=== PATIENT | male | born 1995 | race Caucasian/White ===

== ENCOUNTER 2017-06-16 10:23 | Emergency (ER) | payer SELFPAY ==
[~2017-06-16] VITALS: Ht 182.9 cm; Wt 70.0 kg
[2017-06-16 10:28] VITALS: BP 116/79; PULSE 65; RESP 16; TEMP 98.7; O2SAT 99
--- NOTE | 2017-06-16 10:44 | PD ---
HPI Chief Complaint: Chest Pain Time Seen by Provider: 10:44 Travel History International Travel<30 days: No Contact w/Intl Traveler<30days: No Traveled to known affect area: No History of Present Illness HPI 21-year-old male came to the emergency room with his with history of chest pain, bilateral arm and hands tingling and feet tingling that started this morning after he woke up. Patient says that generally he doesn't have any of these symptoms. No history of neck or back pain. Patient is not on any medications on a regular basis. He is otherwise a relatively healthy person. He does have family history of heart disease. His grandfather in his 30s from a massive heart attack. Patient was really concerned from heart standpoint and came to the emergency room. Currently he says his pain is not there. It comes and goes and when it comes it's usually a sharp pain in both his armpits. He seems anxious. Vital signs were stable. [facility] Past Medical History Narrative Medical List of his past medical, surgical, social and family history is reviewed from the nursing note. Social History Alcohol Use: Yes (Frequently) Tobacco Use: No Substance Use: No Allergies-Medications (Allergen,Severity, Reaction): Coded Allergies: No Known Allergies (Unverified , 06/16/17) Comments No known drug allergies. Narrative Medication Awaiting for the nurse to do the medical reconciliation. Patient told me he is not on any medications. Review of Systems Except as stated in HPI: all other systems reviewed are Neg Neurologic: Positive: Paresthesia Physical Exam Narrative GENERAL: Awake, alert, anxious, mild distress SKIN: Focused skin assessment warm/dry. HEAD: Atraumatic. Normocephalic. EYES: Pupils equal and round. No scleral icterus. No injection or drainage. ENT: No nasal bleeding or discharge. Mucous membranes pink and moist. NECK: Trachea midline. No JVD. CARDIOVASCULAR: Regular rate and rhythm. No murmur appreciated. RESPIRATORY: No accessory muscle use. Clear to auscultation. Breath sounds equal bilaterally. GASTROINTESTINAL: Abdomen soft, non-tender, nondistended. Hepatic and splenic margins not palpable. MUSCULOSKELETAL: No obvious deformities. No clubbing. No cyanosis. No edema. NEUROLOGICAL: Awake and alert. No obvious cranial nerve deficits. Motor grossly within normal limits. Normal speech. PSYCHIATRIC: Appropriate mood and affect; insight and judgment normal. Data Data Last Documented VS Vital Signs Date Time Temp Pulse Resp B/P (MAP) Pulse Ox O2 Delivery O2 Flow Rate FiO2 06/16/17 15:45 06/16/17 14:17 84 18 98 Room Air 06/16/17 11:13 2.00 06/16/17 10:28 98.7 Orders Orders Electrocardiogram (06/16/17 10:49) Basic Metabolic Panel (Bmp) (06/16/17 10:49) Complete Blood Count With Diff (06/16/17 10:49) Magnesium (Mg) (06/16/17 10:49) Prothrombin Time / Inr (Pt) (06/16/17 10:49) Troponin I (06/16/17 10:49) Chest, Single Ap (06/16/17 10:49) Ecg Monitoring (06/16/17 10:49) Bilateral Bp Monitoring (06/16/17 10:49) Iv Access Insert/Monitor (06/16/17 10:49) Oximetry (06/16/17 10:49) Oxygen Administration (06/16/17 10:49) Aspirin Chew (Aspirin Chew) (06/16/17 11:00) Sodium Chloride 0.9% Flush (Ns Flush) (06/16/17 11:00) Sodium Chlorid 0.9% 500 Ml Inj (Ns 500 M (06/16/17 11:00) Alprazolam (Xanax) (06/16/17 11:15) Ct Brain W/O Iv Contrast(Rout) (06/16/17 ) Ct Cerv Spine W/O Contrast (06/16/17 ) Troponin I (06/16/17 14:00) Ed Discharge Order (06/16/17 15:19) Labs Laboratory Tests Test 06/16/17 11:00 06/16/17 14:17 White Blood Count 9.4 TH/MM3 Red Blood Count 5.25 MIL/MM3 Hemoglobin 15.6 GM/DL Hematocrit 45.1 % Mean Corpuscular Volume 86.0 FL Mean Corpuscular Hemoglobin 29.8 PG Mean Corpuscular Hemoglobin Concent 34.6 % Red Cell Distribution Width 13.1 % Platelet Count 241 TH/MM3 Mean Platelet Volume 7.8 FL Neutrophils (%) (Auto) 72.5 % Lymphocytes (%) (Auto) 17.2 % Monocytes (%) (Auto) 7.5 % Eosinophils (%) (Auto) 1.6 % Basophils (%) (Auto) 1.2 % Neutrophils # (Auto) 6.8 TH/MM3 Lymphocytes # (Auto) 1.6 TH/MM3 Monocytes # (Auto) 0.7 TH/MM3 Eosinophils # (Auto) 0.1 TH/MM3 Basophils # (Auto) 0.1 TH/MM3 CBC Comment DIFF FINAL Differential Comment Prothrombin Time 11.1 SEC Prothromb Time International Ratio 1.0 RATIO Blood Urea Nitrogen 13 MG/DL Creatinine 0.89 MG/DL Random Glucose 107 MG/DL Calcium Level 9.2 MG/DL Magnesium Level 1.9 MG/DL Sodium Level 139 MEQ/L Potassium Level 3.7 MEQ/L Chloride Level 106 MEQ/L Carbon Dioxide Level 23.0 MEQ/L Anion Gap 10 MEQ/L Estimat Glomerular Filtration Rate 107 ML/MIN Troponin I LESS THAN 0.02 NG/ML LESS THAN 0.02 NG/ML MDM Medical Decision Making Medical Screen Exam Complete: Yes Emergency Medical Condition: Yes Medical Record Reviewed: Yes Interpretation(s) Twelve-lead EKG was reviewed by me. Normal sinus rhythm, normal axis, septal T- wave inversions. Heart rate of 71 bpm. Differential Diagnosis Cervical radiculopathy, ACS, non-STEMI, PE, anxiety Narrative Course 11:12 AM awaiting for the blood test results. I will order a CT scan of his head and C-spine. Patient will be given some Xanax since he visibly appears to be very anxious. 3:27 PM the initial set of cardiac enzyme was negative. At ordered a CT C- spine and head which were read to be essentially negative. I ordered a second troponin which is negative as well that was 3 hours apart. I went and spoke with the patient he was asleep. He woke up and said he feels better. I am comfortable discharging him home. I do not have an next pronation of his paresthesia at this point. But given 2 sets of negative troponin the chest pain definitely does not sound cardiac. Procedures EKG Prior to Arrival: No Diagnosis Primary Impression: Paresthesia Additional Impression: Atypical chest pain Referrals: Primary Care Physician Additional Instructions: Please return to the ER if the condition worsens or any other new concerns. Otherwise follow-up with your primary care. Drink alcohol in moderation. Med/Other Pt SpecificInfo: No Meds Exist/No RX given Disposition: 01 DISCHARGE HOME Condition: Pancho Hawthorne MD Jun 16, 2017 10:44
[2017-06-16] MEDS ORDERED: SODIUM CHLORID 0.9% 500 ML INJ 500 ML IV ONE (11:00)
[2017-06-16] MEDS ORDERED: SODIUM CHLORIDE 0.9% FLUSH 10 ML FLUSH IVF PRN (11:00)
[2017-06-16] MEDS ORDERED: ASPIRIN 81 MG CHEW TAB PO ONE (11:00)
[2017-06-16 11:10] VITALS: BP 133/80; PULSE 70; RESP 20; O2SAT 100
[2017-06-16] MEDS ORDERED: ALPRAZolam 0.5 MG TAB PO ONE (11:15)
[2017-06-16 11:22] LABS: AUTOMATED NEUTROPHIL # 6.8 TH/MM3 (1.8-7.7); BASOPHIL # 0.1 TH/MM3 (0-0.2); BASOPHIL % 1.2 % (0.0-2.0); EOSINOPHIL # 0.1 TH/MM3 (0-0.4); EOSINOPHIL % 1.6 % (0.0-4.0); HEMATOCRIT 45.1 % (39.0-51.0); HEMO FLAGS DIFF FINAL; LYMPH % 17.2 % (9.0-44.0); LYMPHOCYTE # 1.6 TH/MM3 (1.0-4.8); MEAN CORPUSCULAR HEMOGLOBIN 29.8 PG (27.0-34.0); MEAN CORPUSCULAR HGB CONC 34.6 % (32.0-36.0); MONO % 7.5 % (0.0-8.0); NEUT % 72.5 % (16.0-70.0); PLATELET COUNT 241 TH/MM3 (150-450); RED BLOOD COUNT 5.25 MIL/MM3 (4.50-5.90); RED CELL DISTRIBUTION WIDTH 13.1 % (11.6-17.2); WHITE BLOOD COUNT 9.4 TH/MM3 (4.0-11.0)
[2017-06-16 11:25] LABS: PROTHROMBIN TIME - PATIENT 11.1 SEC (9.8-11.6)
--- NOTE | 2017-06-16 11:31 | RADRPT ---
EXAM DATE/TIME: 06/16/2017 11:04 [facility] COMPARISON: No previous studies available for comparison. INDICATIONS : Chest pain. Short of breath. Numbness in hands and feet. MEDICAL HISTORY : None. SURGICAL HISTORY : None. ENCOUNTER: Initial ACUITY: 1 day PAIN SCORE: 6/10 LOCATION: Bilateral chest FINDINGS: A single view of the chest demonstrates the lungs to be symmetrically aerated without evidence of mas s, infiltrate or effusion. The cardiomediastinal contours are unremarkable. Osseous structures are intact. CONCLUSION: 1. No acute cardiopulmonary disease. Joseph Jessica MD on June 16, 2017 at 11:29 Board Certified Radiologist. This report was verified electronically.
[2017-06-16 11:37] LABS: ANION GAP 10 MEQ/L (5-15); BLOOD UREA NITROGEN 13 MG/DL (7-18); CHLORIDE 106 MEQ/L (98-107); GLOMERULAR FILTRATION RATE 107 ML/MIN (>89); MAGNESIUM 1.9 MG/DL (1.5-2.5); POTASSIUM 3.7 MEQ/L (3.5-5.1); SODIUM (NA) 139 MEQ/L (136-145)
--- NOTE | 2017-06-16 11:47 | RADRPT ---
EXAM DATE/TIME: 06/16/2017 11:35 [facility] COMPARISON: No previous studies available for comparison. INDICATIONS : Arm numbness. RADIATION DOSE: 33.13 CTDIvol (mGy) MEDICAL HISTORY : None SURGICAL HISTORY : None. ENCOUNTER: Initial ACUITY: 1 day PAIN SCALE: 0/10 LOCATION: cranial TECHNIQUE: Multiple contiguous axial images were obtained of the head. Using automated exposure control and adj ustment of the mA and/or kV according to patient size, radiation dose was kept as low as reasonably a chievable to obtain optimal diagnostic quality images. DICOM format image data is available electro nically for review and comparison. FINDINGS: CEREBRUM: The ventricles are normal for age. No evidence of midline shift, mass lesion, hemorrhage or acute in farction. No extra-axial fluid collections are seen. POSTERIOR FOSSA: The cerebellum and brainstem are intact. The 4th ventricle is midline. The cerebellopontine angle i s unremarkable. EXTRACRANIAL: The visualized portion of the orbits is intact. SKULL: The calvaria is intact. No evidence of skull fracture. CONCLUSION: 1. No acute intracranial abnormality. Joseph Jessica MD on June 16, 2017 at 11:44 Board Certified Radiologist. This report was verified electronically.
--- NOTE | 2017-06-16 12:01 | RADRPT ---
EXAM DATE/TIME: 06/16/2017 11:35 [facility] COMPARISON: No previous studies available for comparison. INDICATIONS : Arm numbness. RADIATION DOSE: 12.28 CTDIvol (mGy) MEDICAL HISTORY : None SURGICAL HISTORY : None. ENCOUNTER: Initial ACUITY: 1 day PAIN SCALE: 0/10 LOCATION: Bilateral neck TECHNIQUE: Volumetric scanning of the cervical spine was performed. Multiplanar reconstructions in the sagittal, coronal and oblique axial planes were performed. Using automated exposure control and adjustment o f the mA and/or kV according to patient size, radiation dose was kept as low as reasonably achievable to obtain optimal diagnostic quality images. DICOM format image data is available electronically f or review and comparison. FINDINGS: Vertebral body heights are maintained. Osseous structures are intact without evidence for acute bony fracture. Dens is intact. Sagittal alignment is maintained. There is a normal C1-2 relationship. Face ts are normally aligned. There is no significant prevertebral soft tissue hematoma. Bony central ebony l is patent. Mild diffuse disc bulge at C5-6 without central canal or significant neural foraminal st enosis. No significant cervical adenopathy or gross mass. The thyroid appears unremarkable. Visualize d lung apices are clear without pneumothorax. CONCLUSION: 1. No acute fracture or subluxation. 2. Mild disc bulge at C5-6 without significant central canal or neural foraminal stenosis. Joseph Jessica MD on June 16, 2017 at 11:56 Board Certified Radiologist. This report was verified electronically.
[2017-06-16 14:17] VITALS: BP 122/73; PULSE 84; RESP 18; O2SAT 98
--- NOTE | 2017-06-17 11:09 | EKG ---
Date Performed: 06/16/2017 Time Performed: 11:03:42 PTAGE: 21 years EKG: Possible ectopic atrial RHYTHM MODERATE T-WAVE ABNORMALITY, CONSIDER ANTERIOR ISCHEMIA Base line artifact limits accuracy of interpretation ABNORMAL ECG NO PREVIOUS TRACING DOCTOR: John Ye Interpretating Date/Time 06/17/2017 11:08:25
== END 2017-06-16 15:46 | disposition home or self-care (01) ==
LOC: NEPC 10:23
DX: R20.2 Paresthesia of skin (principal); R07.89 Other chest pain; R94.31 Abnormal electrocardiogram [ECG] [EKG]
CPT/HCPCS: 70450; 71010; 72125; 80048; 83735; 84484; 85025; 85610; 93005; 96360; 99285; J7040